=== PATIENT | male | born 2000 | race African-American/Black ===

== ENCOUNTER 2021-06-02 11:08 | Emergency (ER) | payer BC ==
[~2021-06-02] VITALS: Ht 185.4 cm; Wt 77.1 kg
[2021-06-02 11:22] VITALS: BP 106/61
--- NOTE | 2021-06-02 12:00 | NUR ---
BIB SELF C/O 05/08 LEFT WRIST PAIN S/P FALL X YESTERDAY.
[2021-06-02] MEDS ORDERED: IBUP-2230 PO (12:28)
[2021-06-02 12:35] VITALS: BP 106/61
== END 2021-06-02 12:35 | disposition home or self-care (01) ==
LOC: MED 11:08
DX: M25.532 Pain in left wrist (principal); W19.XXXA Unspecified fall, initial encounter; Y93.89 Activity, other specified; Y92.89 Other specified places as the place of occurrence of the external cause; Y99.8 Other external cause status
CPT/HCPCS: 73110; 99283